=== PATIENT | male | born 1990 | race Caucasian/White ===

== ENCOUNTER 2016-11-17 16:04 | Emergency (ER) | payer OTHER ==
--- NOTE | 2016-11-17 16:53 | ED ORDER SUMMARY ---
..... Patient: STANLEY GOODRICH OrderSheet [facility] VisitID: [id number] [address] [place] [address] 26y, M Registration Date/Time: 11/17/2016 ORDER SHEET Weight: 102.0 kg (stated) Allergies: Adderall- "makes me angry" GENERAL ORDERS: Dress Wounds (with bacitracin) (16:53 11/17/2016 Irene MENDES) (18:07 DDeabere R.N.) MEDICATION ORDERS: Keflex PO 500 mg (NOW) (16:40 11/17/2016 Irene MENDES) (18:08 DDmaria d R.N.) IV FLUIDS: ORDER SHEET NOTES: [Electronically signed by Prudencio Clayton DO (17:51 11/17/2016)] [Electronically signed by Юлия Oliver R.N. (18:08 11/17/2016)] [Electronically locked/signed by Юлия Oliver R.N. (18:08 11/17/2016)]
--- NOTE | 2016-11-17 16:53 | ED NURSING NOTES ---
Clinical Report - Nurses Formerly [facility] [address] [place] [address] 11/17/2016 16:14 Patient: STANLEY GOODRICH TRIAGE Triage time 1620. Acuity: LEVEL 4. Chief Complaint: BEE STING and STING (pt stepped on insect and got a sting yesterday. states he thinks the stinger is still in place.). 16:20. --16:25 Юлия Oliver R.N. 16:20 11/17/16. BP: 126/77. HR: 70. RR: 18. O2 saturation: 99% on room air. Temp: 98.1 F. Pain level now: 10/16. --16:25 Юлия Oliver R.N. Weight: 102 kg stated. Height/Length: 70 inches Per Patient. BMI: 32.3. --16:23 Юлия Oliver R.N. Medications tylenol for pain. --16:27 Юлия Oliver R.N. Fish Oil Oral. Multivitamin Oral. Nettle (Urtica Dioica) Oral. --16:31 Юлия Oliver R.N. Allergies Adderall- "makes me angry". --16:30 Юлия Oliver R.N. History Arrived by private vehicle. Historian: patient. Accompanied by friend. Primary physician (chandrakant). This occurred yesterday. He has had redness. ( c/o pain and redness and difficulty walking). SOCIAL HX: Light tobacco smoker (cigar). Occasional alcohol use. No drug use. --16:25 Юлия Oliver R.N. PROBLEMS: Asthma. --16:24 Юлия Oliver R.N. ADDITIONAL SURGERIES: Adenoidectomy. Dental Surgery. Tonsillectomy. --16:24 Юлия Oliver R.N. Interventions ID band on patient. To treatment room. --16:25 Юлия Oliver R.N. PHYSICAL ASSESSMENT 16:20. Ambulatory to room. GENERAL / NEURO / PSYCH: Alert. Oriented X 4. Appears in pain. RESPIRATORY: Respirations not labored. CVS: Capillary refill less than 2 seconds. GI / : Abdomen soft. EXTREMITIES: ( limping gait). SKIN: Skin is warm and dry. --16:26 Юлия Oliver R.N. NURSING PROGRESS NOTES 16:20. Reassurance given. Patient identifiers checked. Call light placed in reach. Side rails up. Bed placed in lowest position. Patient ready for evaluation- chart flagged. --16:26 Юлия Oliver R.N. 16:45 wound preped by ERMD with betadine, and then Lidocaine 1% to wound site. small invcision made to check for FB, none noted. --18:07 Юлия Oliver R.N. 16:55. Applied clean dressing consisting of 4x4 gauze, following the application of antibiotic ointment. Secured with tape and chucky (coban used on dressing). --18:07 Юлия Oliver R.N. 16:55 11/17/2016 Keflex (Cephalexin) PO Capsules 500 mg given. Allergies verified and confirmed 5 rights. --18:08 Юлия Oliver R.N. DISPOSITION / DISCHARGE 17:00. Condition at departure: unchanged and stable. No learning barriers present. Discharge instructions provided and reviewed with the patient. Reviewed medication(s) (keflex, motrin). Patient verbalized understanding. Written instructions provided in Greek. The patient was discharged home and accompanied by baseboard heating installer. He left the Emergency Department ambulatory and via private vehicle. Storm Sash Maker driving. --18:05 Юлия Oliver R.N. 17:00 11/17/16. BP: deferred. HR: deferred. RR: deferred. O2 saturation: deferred. Temp: deferred. Pain level now: 0/10. --18:05 Юлия Oliver R.N. Locked/Released at 11/17/2016 18:08 by Юлия Oliver R.N.
--- NOTE | 2016-11-17 16:53 | ED CLINICAL REPORT ---
Clinical Report - Physicians/Mid Levels [facility] [address] [place] [address] 11/17/2016 16:14 Patient: STANLEY GOODRICH Time Seen: 16:20. Arrived- By private vehicle. Historian- patient. HISTORY OF PRESENT ILLNESS Chief Complaint: TENDER AREA and STING. This started yesterday and is still present. It was gradual in onset and has been waxing/waning. It is described as painful. It has been located on the right foot. A cause has been identified. (Pt states that he was walking barefoot and stepped on a bee or wasp; however he did not see the insect. He states he "pulled out a stinger" - but is unsure if it was a stinger or something else. He feels that there may be a piece of stinger retained. He is noting some pain and redness immediately adjacent to the site. No systemic symptoms or pus discharge from the site). Similar symptoms previously: None. Recent medical care: Not recently seen/assessed. REVIEW OF SYSTEMS No fever, chills, sore throat, cough or difficulty breathing. No headache, chest pain, difficulty with urination, joint pain or vomiting. PAST HISTORY PCP: Dr Wilkerson PROBLEMS: Asthma. ADHD SURGERIES: Adenoidectomy. Dental Surgery. Tonsillectomy. SOCIAL HISTORY Smoker- current status unknown (cigar). Occasional alcohol use. No drug use. Residence: [place]. ADDITIONAL NOTES The nursing notes have been reviewed. PHYSICAL EXAM Vital Signs: 11/17/2016 16:20 BP: 126/77. HR: 70. RR: 18. O2 saturation: 99%. Temp: 98.1 F. Pain level now: 6/10. Appearance: Alert. Oriented X3. Anxious. Patient in mild distress. Eyes: Pupils equal, round and reactive to light. Conjunctivae and eyelids normal. Neck: Neck supple. CVS: Normal heart rate and rhythm. Heart sounds normal. Respiratory: No respiratory distress. Breath sounds normal. Abdomen: Nontender. No organomegaly. Skin: No cyanosis. Skin warm and dry. No pallor. Normal skin color. Skin not cool on palpation. No diaphoresis. Normal skin turgor. Small area of erythema with tenderness to right foot (no visible foreign body under magnification; no palpable foreign body). No warmth, swelling or lymphangitis. Extremities: (right foot plantar aspect with mild erythema adjacent to an apparent puncture; no fb seen or palpated). Neuro: Oriented X 3. No motor deficit. No sensory deficit. LABS, X-RAYS, AND EKG Pulse Oximetry: 11/17/2016 16:20 O2 saturation: 99%. (FIO2 - room air). Interpretation: normal. PROGRESS AND PROCEDURES PROCEDURES (Plantar puncture wound exploration and cleaning: Right foot prepped with betadine and 3ml of 0.5% bupivicaine with epi infused. A small incision is made with an 18 G needle and the site probed and visulalized under magnification. No FB seen or palpated. Site is cleansed and dressed with antibiotic ointment.). Course of Care: Keflex 500 mg PO given. No fb seen. I will cover for early, mild cellultis. No abscess now. No systemic symptoms. Imaging is not clinically indicated. Pt will need close out pt follow up. Patient/family counseled. Disposition: Discharged. Condition: stable and improved. CLINICAL IMPRESSION Single superficial plantar puncture wound to the right foot. Infection present.No foreign body. Possible cellulitis of the right foot. INSTRUCTIONS Elevate affected areas above chest level. Do not work for two days. Drink plenty of fluids. Do not smoke. Warnings: Further evaluation is necessary. It is very important to follow up with a physician. Further evaluation is necessary. It is very important to follow up with a physician. GENERAL WARNINGS: Return or contact your physician immediately if your condition worsens or changes unexpectedly, if not improving as expected, or if other problems arise. Your Current Medications: CONTINUE TAKING THE FOLLOWING MEDICATIONS: Fish Oil Oral. Multivitamin Oral. Nettle (Urtica Dioica) Oral. tylenol for pain*. Prescription Medications: Keflex 500 mg: take 1 capsule orally every 6 hours for 7 days. No refills. Substitution is permissible. OTC Medications: Acetaminophen (available over the counter): take according to label instructions. Motrin (available over the counter): take according to label instructions. Follow-up: Follow up with your doctor in about two days. (Electronically signed by Prudencio Clayton DO 11/17/2016 17:51)
--- NOTE | 2016-11-17 16:53 | ED ORDER SUMMARY ---
..... Patient: STANLEY GOODRICH OrderSheet [facility] VisitID: [id number] [address] [place] [place] [address] 26y, M Registration Date/Time: 11/17/2016 ORDER SHEET Weight: 102.0 kg (stated) Allergies: Adderall- "makes me angry" GENERAL ORDERS: Dress Wounds (with bacitracin) (16:53 11/17/2016 Irene MENDES) (18:07 DDeabere R.N.) MEDICATION ORDERS: Keflex PO 500 mg (NOW) (16:40 11/17/2016 Irene MENDES) (18:08 DDmaria d R.N.) IV FLUIDS: ORDER SHEET NOTES: [Electronically signed by Prudencio Clayton DO (17:51 11/17/2016)] [Electronically signed by Юлия Oliver R.N. (18:08 11/17/2016)] [Electronically locked/signed by Юлия Oliver R.N. (18:08 11/17/2016)]
--- NOTE | 2016-11-17 16:53 | ED NURSING NOTES ---
Clinical Report - Nurses [facility] [address] [place] [address] 11/17/2016 16:14 Patient: STANLEY GOODRICH TRIAGE Triage time 1620. Acuity: LEVEL 4. Chief Complaint: BEE STING and STING (pt stepped on insect and got a sting yesterday. states he thinks the stinger is still in place.). 16:20. --16:25 Юлия Oliver R.N. 16:20 11/17/16. BP: 126/77. HR: 70. RR: 18. O2 saturation: 99% on room air. Temp: 98.1 F. Pain level now: 10/16. --16:25 Юлия Oliver R.N. Weight: 102 kg stated. Height/Length: 70 inches Per Patient. BMI: 32.3. --16:23 Юлия Oliver R.N. Medications tylenol for pain. --16:27 Юлия Oliver R.N. Fish Oil Oral. Multivitamin Oral. Nettle (Urtica Dioica) Oral. --16:31 Юлия Oliver R.N. Allergies Adderall- "makes me angry". --16:30 Юлия Oliver R.N. History Arrived by private vehicle. Historian: patient. Accompanied by friend. Primary physician (chandrakant). This occurred yesterday. He has had redness. ( c/o pain and redness and difficulty walking). SOCIAL HX: Light tobacco smoker (cigar). Occasional alcohol use. No drug use. --16:25 Юлия Oliver R.N. PROBLEMS: Asthma. --16:24 Юлия Oliver R.N. ADDITIONAL SURGERIES: Adenoidectomy. Dental Surgery. Tonsillectomy. --16:24 Юлия Oliver R.N. Interventions ID band on patient. To treatment room. --16:25 Юлия Oliver R.N. PHYSICAL ASSESSMENT 16:20. Ambulatory to room. GENERAL / NEURO / PSYCH: Alert. Oriented X 4. Appears in pain. RESPIRATORY: Respirations not labored. CVS: Capillary refill less than 2 seconds. GI / : Abdomen soft. EXTREMITIES: ( limping gait). SKIN: Skin is warm and dry. --16:26 Юлия Oliver R.N. NURSING PROGRESS NOTES 16:20. Reassurance given. Patient identifiers checked. Call light placed in reach. Side rails up. Bed placed in lowest position. Patient ready for evaluation- chart flagged. --16:26 Юлия Oliver R.N. 16:45 wound preped by ERMD with betadine, and then Lidocaine 1% to wound site. small invcision made to check for FB, none noted. --18:07 Юлия Oliver R.N. 16:55. Applied clean dressing consisting of 4x4 gauze, following the application of antibiotic ointment. Secured with tape and chucky (coban used on dressing). --18:07 Юлия Oliver R.N. 16:55 11/17/2016 Keflex (Cephalexin) PO Capsules 500 mg given. Allergies verified and confirmed 5 rights. --18:08 Юлия Oliver R.N. DISPOSITION / DISCHARGE 17:00. Condition at departure: unchanged and stable. No learning barriers present. Discharge instructions provided and reviewed with the patient. Reviewed medication(s) (keflex, motrin). Patient verbalized understanding. Written instructions provided in Khmer. The patient was discharged home and accompanied by telegraph office route aide. He left the Emergency Department ambulatory and via private vehicle. Co Teacher driving. --18:05 Юлия Oliver R.N. 17:00 11/17/16. BP: deferred. HR: deferred. RR: deferred. O2 saturation: deferred. Temp: deferred. Pain level now: 0/10. --18:05 Юлия Oliver R.N. Locked/Released at 11/17/2016 18:08 by Юлия Oliver R.N.
--- NOTE | 2016-11-17 18:08 | ED MED RECONCILIATION SUMMARY ---
Patient: STANLEY GOODRICH Medication Reconciliation Report [facility] VisitID: [id number] [place] [address] 26y, M Registration Date/Time: 11/17/2016 Weight: 102.0 kg Height/Length: 70 in. BMI: 32.3 ALLERGIES: Adderall- "makes me angry" The patient's Home Medications are listed below: CONTINUE TAKING THE FOLLOWING MEDICATIONS: Fish Oil Oral Multivitamin Oral Nettle (Urtica Dioica) Oral tylenol for pain The source(s) of the original Home Medication information: Not obtained. The following Medications were given to the patient in the Emergency Department: Keflex [PO] PO 500 mg, administered: 11/17/2016 4:55:00 PM The following Medications were prescribed to the patient: Acetaminophen (available over the counter): take according to label instructions. -- Prudencio Clayton DO Motrin (available over the counter): take according to label instructions. -- Prudencio Clayton DO Keflex 500 mg: take 1 capsule orally every 6 hours for 7 days. No refills. Substitution is permissible. -- Prudencio Clayton DO
--- NOTE | 2016-11-17 18:08 | ED DISCHARGE INSTRUCTIONS ---
Patient: STANLEY GOODRICH General Instructions [facility] VisitID: [id number] [place] [address] 26y, M Registration Date/Time: 11/17/2016 Single superficial plantar puncture wound to the right foot. Infection present.No foreign body. INSTRUCTIONS Elevate affected areas above chest level. Do not work for two days. Drink plenty of fluids. Do not smoke. Warnings: Further evaluation is necessary. It is very important to follow up with a physician. Further evaluation is necessary. It is very important to follow up with a physician. GENERAL WARNINGS: Return or contact your physician immediately if your condition worsens or changes unexpectedly, if not improving as expected, or if other problems arise. Your Current Medications: CONTINUE TAKING THE FOLLOWING MEDICATIONS: Fish Oil Oral. Multivitamin Oral. Nettle (Urtica Dioica) Oral. tylenol for pain*. Prescription Medications: Keflex 500 mg: take 1 capsule orally every 6 hours for 7 days. No refills. Substitution is permissible. OTC Medications: Acetaminophen (available over the counter): take according to label instructions. Motrin (available over the counter): take according to label instructions. Follow-up: Follow up with your doctor in about two days. ADDITIONAL INFORMATION Cellulitis You have an infection of the skin known as cellulitis. This usually starts with a scrape, cut, insect bite, blister or other opening in the skin which becomes infected. This is a serious condition. It must be watched closely to be sure the infection is not spreading. With antibiotic treatment, the size of the red area will gradually shrink in size until the skin returns to normal. This will take 7-10 days. The red area should never increase in size once the antibiotic medicine has been started. Occasionally, an infection will be resistant to one antibiotic and another one will have to be used. Home Care: 1) Limit the use of the affected part, since excess movement can cause the infection to spread. 2) If the infection is on your leg, walk as little as possible during the first few days of the treatment. Keep your leg elevated while sitting. This will reduce swelling. 3) Take all of the antibiotic medicine exactly as directed until it is gone. Be careful not to miss any doses, especially during the first seven days. Follow Up with your doctor or this facility as directed. Check the infected area daily for the warning signs listed below. Get Prompt Medical Attention if any of the following occur: -- Spreading area of redness -- Increasing swelling or pain -- Appearance of pus or drainage -- Fever over 100.4 F (38.0 C) oral, or over 101.4 F (38.6 C) rectal, after two days on antibiotics Puncture Wound: Foot A puncture is a hole through the skin. Bacteria, dirt, and debris can be drawn into this wound, increasing the risk of infection. Antibiotics are usually not prescribed for this injury unless signs of infection are already present. Therefore, it is important to observe the wound closely for the signs of infection listed below. If you were wearing a rubber-soled shoe when the sharp object punctured your foot, there is a chance that bacteria (called "pseudomonas") from the sole of the shoe may be dragged into the wound and infect the skin, tendon or bone. This infection may start as late as 2-3 weeks after the injury. It is more serious and harder to treat than the common staph and strep skin infections, so follow the advice below. Home Care: Keep the foot raised during the first 24-48 hours to reduce swelling and pain. DO NOT BEAR WEIGHT on the injured foot if it hurts to do so. You may use acetaminophen (Tylenol) or ibuprofen (Motrin, Advil) to control pain, unless another medicine was prescribed. [NOTE: If you have chronic liver or kidney disease or ever had a stomach ulcer or GI bleeding, talk with your doctor before using these medicines.] You may shower as usual, but do not soak the wound in water (no baths or swimming) until the wound seals and there is no more drainage or bleeding. Keep the wound clean and dry. If a bandage was applied and it becomes wet or dirty, replace it. Otherwise, keep the wound covered until there is no more drainage or bleeding. Follow Up: Most puncture wounds heal within 10 days. However, an infection may sometimes occur despite proper treatment. If small particles were drawn into the puncture wound (such as fragments of cloth, rubber, wood or dirt), an infection may occur. These fragments are very hard to find during the first exam since it is not possible to get a good look inside a puncture wound and they do not show on an X-ray. Antibiotics and a minor surgical procedure to find and remove the foreign object will be needed if this happens. Over the next 2-3 weeks, check the wound daily for the warning signs listed below. If you are still having swelling or pain in the foot after two weeks, you should contact your doctor or return to this facility for an x-ray to look for an infection in the bone. [NOTE: Any X-rays taken will be reviewed by a radiologist. You will be notified of any new findings that may affect your care.] Get Prompt Medical Attention if any of the following occur: Increasing pain Foot becomes cold, blue, numb, or tingly Fever of 100.4F (38C) or higher, or as directed by your healthcare provider Redness, warmth, swelling or drainage from the wound Pain or swelling that lasts for two weeks Cephalexin Monohydrate Oral tablet What is this medicine? CEPHALEXIN (sef a AYESHA in) is a cephalosporin antibiotic. It is used to treat certain kinds of bacterial infections It will not work for colds, flu, or other viral infections. How should I use this medicine? Take this medicine by mouth with a full glass of water. Follow the directions on the prescription label. This medicine can be taken with or without food. Take your medicine at regular intervals. Do not take your medicine more often than directed. Take all of your medicine as directed even if you think you are better. Do not skip doses or stop your medicine early. Talk to your highwall drill operator regarding the use of this medicine in children. While this drug may be prescribed for selected conditions, precautions do apply. What side effects may I notice from receiving this medicine? Side effects that you should report to your doctor or health home care provider as soon as possible: allergic reactions like skin rash, itching or hives, swelling of the face, lips, or tongue breathing problems pain or trouble passing urine redness, blistering, peeling or loosening of the skin, including inside the mouth severe or watery diarrhea unusually weak or tired yellowing of the eyes, skin Side effects that usually do not require medical attention (report to your doctor or health home care provider if they continue or are bothersome): gas or heartburn genital or anal irritation headache joint or muscle pain nausea, vomiting What may interact with this medicine? probenecid some other antibiotics What if I miss a dose? If you miss a dose, take it as soon as you can. If it is almost time for your next dose, take only that dose. Do not take double or extra doses. There should be at least 4 to 6 hours between doses. Where should I keep my medicine? Keep out of the reach of children. Store at room temperature between 59 and 86 degrees F (15 and 30 degrees C). Throw away any unused medicine after the expiration date. What should I tell my health care provider before I take this medicine? They need to know if you have any of these conditions: kidney disease stomach or intestine problems, especially colitis an unusual or allergic reaction to cephalexin, other cephalosporins, penicillins, other antibiotics, medicines, foods, dyes or preservatives or trying to get breast-feeding What should I watch for while using this medicine? Tell your doctor or health home care provider if your symptoms do not begin to improve in a few days. Do not treat diarrhea with over the counter products. Contact your doctor if you have diarrhea that lasts more than 2 days or if it is severe and watery. If you have diabetes, you may get a false-positive result for sugar in your urine. Check with your doctor or health home care provider. Acetaminophen Oral tablet What is this medicine? ACETAMINOPHEN (a set a LUCILLE mariaelena fen) is a pain reliever. It is used to treat mild pain and fever. How should I use this medicine? Take this medicine by mouth with a glass of water. Follow the directions on the package or prescription label. Take your medicine at regular intervals. Do not take your medicine more often than directed. Talk to your highwall drill operator regarding the use of this medicine in children. While this drug may be prescribed for children as young as 6 years of age for selected conditions, precautions do apply. What side effects may I notice from receiving this medicine? Side effects that you should report to your doctor or health home care provider as soon as possible: allergic reactions like skin rash, itching or hives, swelling of the face, lips, or tongue breathing problems fever or sore throat redness, blistering, peeling or loosening of the skin, including inside the mouth trouble passing urine or change in the amount of urine unusual bleeding or bruising unusually weak or tired yellowing of the eyes or skin Side effects that usually do not require medical attention (report to your doctor or health home care provider if they continue or are bothersome): headache nausea, stomach upset What may interact with this medicine? alcohol imatinib isoniazid other medicines with acetaminophen What if I miss a dose? If you miss a dose, take it as soon as you can. If it is almost time for your next dose, take only that dose. Do not take double or extra doses. Where should I keep my medicine? Keep out of reach of children. Store at room temperature between 20 and 25 degrees C (68 and 77 degrees F). Protect from moisture and heat. Throw away any unused medicine after the expiration date. What should I tell my health care provider before I take this medicine? They need to know if you have any of these conditions: if you frequently drink alcohol containing drinks liver disease an unusual or allergic reaction to acetaminophen, other medicines, foods, dyes or preservatives or trying to get breast-feeding What should I watch for while using this medicine? Tell your doctor or health home care provider if the pain lasts more than 10 days (5 days for children), if it gets worse, or if there is a new or different kind of pain. Also, check with your doctor if a fever lasts for more than 3 days. Do not take other medicines that contain acetaminophen with this medicine. Always read labels carefully. If you have questions, ask your doctor or pharmacist. If you take too much acetaminophen get medical help right away. Too much acetaminophen can be very dangerous and cause liver damage. Even if you do not have symptoms, it is important to get help right away. Ibuprofen Oral tablet What is this medicine? IBUPROFEN (eye BYOO proe fen) is a non-steroidal anti-inflammatory drug (NSAID). It is used for dental pain, fever, headaches or migraines, osteoarthritis, rheumatoid arthritis, or painful monthly periods. It can also relieve minor aches and pains caused by a cold, flu, or sore throat. How should I use this medicine? Take this medicine by mouth with a glass of water. Follow the directions on the prescription label. Take this medicine with food if your stomach gets upset. Try to not lie down for at least 10 minutes after you take the medicine. Take your medicine at regular intervals. Do not take your medicine more often than directed. A special MedGuide will be given to you by the pharmacist with each prescription and refill. Be sure to read this information carefully each time. Talk to your highwall drill operator regarding the use of this medicine in children. Special care may be needed. What side effects may I notice from receiving this medicine? Side effects that you should report to your doctor or health home care provider as soon as possible: allergic reactions like skin rash, itching or hives, swelling of the face, lips, or tongue black or bloody stools, blood in the urine or in vomit breathing problems changes in vision chest pain general ill feeling or flu-like symptoms nausea or vomiting redness, blistering, peeling or loosening of the skin, including inside the mouth slurred speech or weakness on one side of the body stomach pain unexplained weight gain or swelling unusually weak or tired yellowing of eyes or skin Side effects that usually do not require medical attention (report to your doctor or health home care provider if they continue or are bothersome): constipation or diarrhea dizziness gas or heartburn stomach upset What may interact with this medicine? Do not take this medicine with any of the following medications: cidofovir ketorolac methotrexate pemetrexed This medicine may also interact with the following medications: alcohol aspirin diuretics lithium other drugs for inflammation like prednisone warfarin What if I miss a dose? If you miss a dose, take it as soon as you can. If it is almost time for your next dose, take only that dose. Do not take double or extra doses. Where should I keep my medicine? Keep out of the reach of children. Store at room temperature between 15 and 30 degrees C (59 and 86 degrees F). Keep container tightly closed. Throw away any unused medicine after the expiration date. What should I tell my health care provider before I take this medicine? They need to know if you have any of these conditions: asthma cigarette smoker drink more than 3 alcohol containing drinks a day heart disease or circulation problems such as heart failure or leg edema (fluid retention) high blood pressure kidney disease liver disease stomach bleeding or ulcers an unusual or allergic reaction to ibuprofen, aspirin, other NSAIDS, other medicines, foods, dyes, or preservatives or trying to get breast-feeding What should I watch for while using this medicine? Tell your doctor or healthcare professional if your symptoms do not start to get better or if they get worse. This medicine does not prevent heart attack or stroke. In fact, this medicine may increase the chance of a heart attack or stroke. The chance may increase with longer use of this medicine and in people who have heart disease. If you take aspirin to prevent heart attack or stroke, talk with your doctor or health home care provider. Do not take other medicines that contain aspirin, ibuprofen, or naproxen with this medicine. Side effects such as stomach upset, nausea, or ulcers may be more likely to occur. Many medicines available without a prescription should not be taken with this medicine. This medicine can cause ulcers and bleeding in the stomach and intestines at any time during treatment. Ulcers and bleeding can happen without warning symptoms and can cause . To reduce your risk, do not smoke cigarettes or drink alcohol while you are taking this medicine. You may get drowsy or dizzy. Do not drive, use machinery, or do anything that needs mental alertness until you know how this medicine affects you. Do not stand or sit up quickly, especially if you are an older patient. This reduces the risk of dizzy or fainting spells. This medicine can cause you to bleed more easily. Try to avoid damage to your teeth and gums when you brush or floss your teeth. You have been given the following additional information: Cellulitis Puncture Wound, Foot Cephalexin Monohydrate Oral tablet Acetaminophen Oral tablet Ibuprofen Oral tablet Do not work for two days. (Electronically signed by Prudencio Clayton DO 11/17/2016 17:51)
--- NOTE | 2016-11-17 18:08 | ED MED RECONCILIATION SUMMARY ---
Patient: STANLEY GOODRICH Medication Reconciliation Report [facility] VisitID: [id number] [place] [address] 26y, M Registration Date/Time: 11/17/2016 Weight: 102.0 kg Height/Length: 70 in. BMI: 32.3 ALLERGIES: Adderall- "makes me angry" The patient's Home Medications are listed below: CONTINUE TAKING THE FOLLOWING MEDICATIONS: Fish Oil Oral Multivitamin Oral Nettle (Urtica Dioica) Oral tylenol for pain The source(s) of the original Home Medication information: Not obtained. The following Medications were given to the patient in the Emergency Department: Keflex [PO] PO 500 mg, administered: 11/17/2016 4:55:00 PM The following Medications were prescribed to the patient: Acetaminophen (available over the counter): take according to label instructions. -- Prudencio Clayton DO Motrin (available over the counter): take according to label instructions. -- Prudencio Clayton DO Keflex 500 mg: take 1 capsule orally every 6 hours for 7 days. No refills. Substitution is permissible. -- Prudencio Clayton DO
--- NOTE | 2016-11-17 18:08 | ED MAR SUMMARY ---
..... Medication Administration Record [facility] [address] [place] [address] Patient: STANLEY GOODRICH Visit ID: [id number] 26y, M Weight: 102.0 kg Height/Length: 70 in BMI: 32.3 ALLERGIES: Adderall- "makes me angry" Given 16:55 11/17/2016 Benito, Alisa Redman Medication Administered: KEFLEX [PO] (CEPHALEXIN), Dose: 500 mg Capsules PO. Medication Ordered: Keflex PO 500 mg (NOW).
--- NOTE | 2016-11-17 18:08 | ED MAR SUMMARY ---
..... Medication Administration Record [facility] [address] [place] [address] Patient: STANLEY GOODRICH Visit ID: [id number] 26y, M Weight: 102.0 kg Height/Length: 70 in BMI: 32.3 ALLERGIES: Adderall- "makes me angry" Given 16:55 11/17/2016 Benito, Alisa Redman Medication Administered: KEFLEX [PO] (CEPHALEXIN), Dose: 500 mg Capsules PO. Medication Ordered: Keflex PO 500 mg (NOW).
== END 2016-11-17 17:00 | disposition home or self-care (01) ==
LOC: ED SRH 16:04
DX: S91.331A Puncture wound without foreign body, right foot, initial encounter (principal); W22.8XXA Striking against or struck by other objects, initial encounter; Y93.01 Activity, walking, marching and hiking; Y92.9 Unspecified place or not applicable; Y99.8 Other external cause status